=== PATIENT | female | born 1950 | race American Indian/Alaskan Native ===

== ENCOUNTER → 2017-04-24 | Outpatient (CLI) | payer MEDICARE, OTHER ==
[~2017-04-24] MED LIST: ACET325 PO; ALBU90OI INH; AMLO5 PO; ASCO500 PO; ASPI325 PO; ASPI325EC; ASPI81CH PO; ATEN100; ATEN100 PO; ATEN25 PO; ATOR10; ATOR80 PO; Adult Low Dose81 MG PO; Aspir-Low81 MG PO; BENADRYL25 MG PO; BENAML20/5; CALCA500CH; CHOL10002 PO; CIPDEXSU RIGHTEAR; CLOP75; CLOP75 PO; CYAN1000I IM; CYCL10 PO; Cleocin HCl150 MG PO; Colace100 MG PO; FLUT.05NI; FURO20 PO; FURO40 PO; GLYMET5; Glucophage1000 MG PO; HYDACE10B PO; HYDCHL12.5 PO; HYDR-86; HYDR1TAB94 PO; Humalog Mi100 UNIT/4 SC; Humalog100 UNIT/3 SQ; INSLI100I; INSULANI; INSULANPEN SC; Isosorbide Dini30 MG PO; Isosorbide Mono30 MG PO; Isosorbide Mono60 MG PO; LIDO5TO TOP; LIDO5TP TD; LIDO700A20 TOP; LISI20 PO; LISI5 PO; Lipitor80 MG PO; META800 PO; METF850; METO25ER PO; METO50ER PO; METR250 PO; NITR.4SL SL; NITRSPRAY SL; Nitrostat0.3 MG SL; Norco 10-325 T1 EACH; Norco 10-325 T1 EACH PO; OMEP20ER PO; OXYC5 PO; Omeprazole20 M1 PO; PANT20 PO; PANT40 PO; PREVAC; PREVPAC PO; PROM25 PO; Pepto-Bismol262 M1 PO; Percocet 5-3251 EACH PO; Prednisone20 MG PO; RANI150 PO; Roxicodone5 MG PO; SENN187 PO; SUCR1SU PO; Tetracycline H500 MG PO; Zofran Odt4 MG SL; Zofran Odt8 MG PO; [UNRECOGNIZED DRUG - OTHER]
== END | disposition home or self-care (01) ==
LOC: LAB SHORT 07:05 → PLD 07:05
DX: D11.0 Benign neoplasm of parotid gland (principal)
CPT/HCPCS: 88173

== ENCOUNTER 2017-07-31 06:17 | Day surgery (SDC) | payer MEDICARE, OTHER ==
[~2017-07-31] VITALS: Ht 167.6 cm; Wt 93.9 kg
[~2017-07-31 06:17] MED LIST changes: -AMLO5 PO; -Aspir-Low81 MG PO; -BENADRYL25 MG PO; -CYCL10 PO; -FURO20 PO; -Humalog Mi100 UNIT/4 SC; -Isosorbide Mono60 MG PO; -LIDO5TO TOP; -LIDO700A20 TOP; -Lipitor80 MG PO; -METO25ER PO; -Nitrostat0.3 MG SL; -Norco 10-325 T1 EACH; -Norco 10-325 T1 EACH PO; -PROM25 PO
[2017-07-31] MEDS ORDERED: METO25ER PO (07:04)
== END 2017-07-31 13:14 | disposition home or self-care (01) ==
LOC: ORSCSDS 06:17
PROVIDERS: Otolaryngology
PROC: 0CB80ZZ Excision of Right Parotid Gland, Open Approach (ICD-10-PCS; principal; 2017-07-31 07:30)
DX: D11.0 Benign neoplasm of parotid gland (principal); F17.210 Nicotine dependence, cigarettes, uncomplicated; E11.9 Type 2 diabetes mellitus without complications; E78.5 Hyperlipidemia, unspecified; I25.10 Atherosclerotic heart disease of native coronary artery without angina pectoris; F32.9 Major depressive disorder, single episode, unspecified; I25.2 Old myocardial infarction; I48.91 Unspecified atrial fibrillation; I10 Essential (primary) hypertension; Z79.01 Long term (current) use of anticoagulants; Z79.4 Long term (current) use of insulin; Z79.899 Other long term (current) drug therapy
CPT/HCPCS: 82947; 88307; J0171; J0330; J0360; J1100; J2250; J2405; J3010; J7120

== ENCOUNTER 2018-01-02 06:07 | Day surgery (SDC) | payer MEDICARE, OTHER ==
[~2018-01-02] VITALS: Ht 167.6 cm; Wt 98.0 kg
[~2018-01-02 06:07] MED LIST changes: +AMLO5 PO; +Aspir-Low81 MG PO; +BENADRYL25 MG PO; +CYCL10 PO; +FURO20 PO; +Humalog Mi100 UNIT/4 SC; +Isosorbide Mono60 MG PO; +LIDO5TO TOP; +LIDO700A20 TOP; +Lipitor80 MG PO; +METO25ER PO; +Nitrostat0.3 MG SL; +Norco 10-325 T1 EACH PO; +PROM25 PO
[2018-01-02] MEDS ORDERED: Norco 10-325 T1 EACH (06:44)
== END 2018-01-02 11:39 | disposition home or self-care (01) ==
LOC: ORSCSDS 06:07
PROVIDERS: Otolaryngology
PROC: 0CB90ZZ Excision of Left Parotid Gland, Open Approach (ICD-10-PCS; principal; 2018-01-02 07:30)
PROC: 00BM0ZZ Excision of Facial Nerve, Open Approach (ICD-10-PCS; principal; 2018-01-02 07:30)
DX: D11.0 Benign neoplasm of parotid gland (principal); E11.9 Type 2 diabetes mellitus without complications; I10 Essential (primary) hypertension; I25.10 Atherosclerotic heart disease of native coronary artery without angina pectoris; F17.210 Nicotine dependence, cigarettes, uncomplicated; Z79.82 Long term (current) use of aspirin; Z79.899 Other long term (current) drug therapy
CPT/HCPCS: 82947; 88307; J0171; J0330; J1100; J2250; J2370; J2405; J3010; J7120

== ENCOUNTER 2018-05-12 12:29 | Inpatient (IN) | payer MEDICARE, OTHER ==
[~2018-05-12] VITALS: Ht 167.6 cm; Wt 92.7 kg
[~2018-05-12 12:29] MED LIST changes: -AMLO5 PO; -Aspir-Low81 MG PO; -Lipitor80 MG PO
[2018-05-12 14:21] LABS: BASOPHILS ABSOLUTE AUTO 0.06 K/mm3 (0.00-0.23); BASOPHILS PERCENT AUTO 0 % (0-2); EOSINOPHILS ABSOLUTE AUTO 0.01 K/mm3 (0.00-0.68); EOSINOPHILS PERCENT AUTO 0 % (0-6); Hematocrit 33.8 % (33.0-51.0); Hemoglobin 10.8 g/dL (11.5-16.0); IMMATURE GRAN ABSOLUTE AUTO 0.26 K/mm3 (0.00-0.10); IMMATURE GRAN PERCENT AUTO 1 % (0-1); LYMPHOCYTES ABSOLUTE AUTO 0.88 K/mm3 (0.84-5.20); LYMPHOCYTES PERCENT AUTO 4 % (21-46); MONOCYTES ABSOLUTE AUTO 1.26 K/mm3 (0.16-1.47); MONOCYTES PERCENT AUTO 5 % (4-13); Mean Corpuscular HGB 28.3 pg (26.0-34.0); Mean Corpuscular Volume 89 fL (80-100); Mean Platelet Volume 9.3 fL (9.1-12.4); NEUTROPHILS ABSOLUTE AUTO 22.29 K/mm3 (1.96-9.15); NEUTROPHILS PERCENT AUTO 90 % (41-73); Platelet Count 423 K/mm3 (150-400); RDW Coefficient Variation 14.6 % (11.7-14.2); RDW Standard Deviation 47.6 fL (35.1-46.3); Red Blood Cell Count 3.81 M/mm3 (3.80-5.20); White Blood Cell Count 24.76 K/mm3 (4.00-11.30)
[2018-05-12 14:41] LABS: Influenza A Negative (NEGATIVE); Influenza B Negative (NEGATIVE)
[2018-05-12 14:42] LABS: Alanine Aminotransfer (ALT/SGP 23 U/L (12-78); Albumin, Blood 2.5 g/dL (3.4-5.0); Albumin/Globulin Ratio 0.4 (0.8-1.8); Alk Phos 116 U/L (50-136); Anion Gap 9 mmol/L (6-16); Aspartate Aminotrans (AST/SGOT 23 U/L (12-37); Bilirubin, Total 0.5 mg/dL (0.1-1.0); Blood Urea Nitrogen 27 mg/dL (8-24); Bun/Creatinine Ratio 15.1 (12.0-20.0); CO2, Blood 21 mmol/L (21-32); Calcium, Blood 9.4 mg/dL (8.5-10.1); Chloride, Blood 101 mmol/L (98-108); Creatinine, Blood 1.79 mg/dL (0.40-1.00); Globulin, Blood 5.8 g/dL (2.2-4.0); Glomerular Filtration Rate 30 (60-); Glucose, Blood 112 mg/dL (70-99); Sodium, Blood 131 mmol/L (136-145); Total Protein, Blood 8.3 g/dL (6.4-8.2); Troponin I <0.015 ng/mL (0.000-0.040)
[2018-05-12] MEDS ORDERED: **incomplete med rec (16:06)
[2018-05-12] MEDS ORDERED: AMLO5 PO (16:07)
[2018-05-12] MEDS ORDERED: Aspir-Low81 MG PO (16:09)
[2018-05-12] MEDS ORDERED: Lipitor80 MG PO (16:09)
[2018-05-12] MEDS ORDERED: FURO20 PO (16:10)
[2018-05-12] MEDS ORDERED: Norco 10-325 T1 EACH PO (16:11)
[2018-05-12] MEDS ORDERED: INSULANPEN SC (16:12)
[2018-05-12] MEDS ORDERED: Isosorbide Mono30 MG PO (16:14)
[2018-05-12] MEDS ORDERED: LISI20 PO (16:15)
[2018-05-12] MEDS ORDERED: METO50ER PO (16:16)
[2018-05-12] MEDS ORDERED: Omeprazole20 M1 PO (16:17)
[2018-05-12] MEDS ORDERED: CLOP75 PO (16:18)
[2018-05-12] MEDS ORDERED: TELM40 PO (16:19)
[2018-05-12] MEDS ORDERED: Humalog100 UNIT/1 SC (16:44)
[2018-05-12] MEDS ORDERED: ASCO500 PO (16:56)
[2018-05-12 18:35] LABS: Adenovirus Not Detected (NOT DETECT); Bordetella pertussis Not Detected (NOT DETECT); Chlamydophila pneumoniae Not Detected (NOT DETECT); Coronavirus 229E Not Detected (NOT DETECT); Coronavirus HKU1 Not Detected (NOT DETECT); Coronavirus NL63 Not Detected (NOT DETECT); Coronavirus OC43 Not Detected (NOT DETECT); Human Metapneumovirus Not Detected (NOT DETECT); Human Rhinovirus/Enterovirus Not Detected (NOT DETECT); Influenza A Not Detected (NOT DETECT); Influenza A/2009-H1 Not Detected (NOT DETECT); Influenza A/H1 Not Detected (NOT DETECT); Influenza A/H3 Not Detected (NOT DETECT); Influenza B Not Detected (NOT DETECT); Mycoplasma pneumoniae Not Detected (NOT DETECT); Parainfluenza Virus 1 Not Detected (NOT DETECT); Parainfluenza Virus 2 Not Detected (NOT DETECT); Parainfluenza Virus 3 Not Detected (NOT DETECT); Parainfluenza Virus 4 Not Detected (NOT DETECT); Respiratory Syncytial Virus Not Detected (NOT DETECT)
[2018-05-13 04:53] LABS: BASOPHILS ABSOLUTE AUTO 0.03 K/mm3 (0.00-0.23); BASOPHILS PERCENT AUTO 0 % (0-2); EOSINOPHILS PERCENT AUTO 0 % (0-6); Hematocrit 31.5 % (33.0-51.0); Hemoglobin 9.8 g/dL (11.5-16.0); IMMATURE GRAN ABSOLUTE AUTO 0.25 K/mm3 (0.00-0.10); IMMATURE GRAN PERCENT AUTO 1 % (0-1); LYMPHOCYTES ABSOLUTE AUTO 0.76 K/mm3 (0.84-5.20); LYMPHOCYTES PERCENT AUTO 3 % (21-46); MONOCYTES ABSOLUTE AUTO 0.13 K/mm3 (0.16-1.47); MONOCYTES PERCENT AUTO 1 % (4-13); Mean Corpuscular HGB 28.2 pg (26.0-34.0); Mean Corpuscular HGB Conc 31.1 g/dL (31.5-36.5); Mean Corpuscular Volume 91 fL (80-100); Mean Platelet Volume 9.4 fL (9.1-12.4); NEUTROPHILS PERCENT AUTO 95 % (41-73); Platelet Count 397 K/mm3 (150-400); RDW Coefficient Variation 14.9 % (11.7-14.2); RDW Standard Deviation 49.6 fL (35.1-46.3); Red Blood Cell Count 3.47 M/mm3 (3.80-5.20); White Blood Cell Count 22.37 K/mm3 (4.00-11.30)
[2018-05-13 05:12] LABS: Bun/Creatinine Ratio 16.6 (12.0-20.0); Calcium, Blood 8.8 mg/dL (8.5-10.1); Creatinine, Blood 1.51 mg/dL (0.40-1.00); Potassium, Blood 4.2 mmol/L (3.5-5.5)
--- NOTE | 2018-05-13 05:44 | NUR ---
*SHIFT SUMMARY* PATIENT ARRIVED TO ROOM VIA STRETCHER FROM ER. PATIENT STOOD AND TRANSFERED TO BED FROM STRETCHER. PT ON 2LNC. PRN BREATHING TX. PT IS ALERT AND ORIETNED. USES BSC FOR NOW, SOB WITH EXERTION. PT USES CALL LIGHT APPROPRIATELY. PT HAS PRODUCTIVE COUGH, MEDICATED FOR COUGH THROUGHOUT THE NIGHT WELL PAIN. PT HAS CHRONIC BACK PAIN AND DIABETIC NEUROPATHY. VITAL SIGNS STABLE. PT DID NOT GET MUCH SLEEP THROUGHOUT THE NIGHT. CALL LIGHT IN REACH, BED LOWERED AND LOCKED.
--- NOTE | 2018-05-13 17:22 | NUR ---
PT IS ALERT AND OREINTED AND COOPERATIVE WITH CARE. SHE CALLS APPROPRIATELY. SHE IS A ONE PERSON ASSIST TO THE BSC. SHE HAS SOME SOB WITH EXCERTION. RT HAS PROVIDED HER WITH BREATHING TREATMENTS TODAY. 2L O2 VIA NC. NO COMPLAINTS OF PAIN. HER SPOUSE VISITED HER TODAY. SHE HAS ASKED FOR PEPSI THREE TIMES TODAY, WHEN ENCOURAGED TO DRINK DIET PEPSI, THE PATIENT REFUSES AND DEMANDS REGULAR PEPSI. NO ACUTE CHANGES, WILL CONTINUE TO MONITOR.
--- NOTE | 2018-05-14 04:49 | NUR ---
SHIFT SUMMARY PT A/O. AND GRANDDAUGHTER AT BEDSIDE FOR START OF THE SHIFT BEFORE RETURNING HOME. PT UP THROUGH MUCH OF THE NIGHT. HAVING DIFFICULTY SLEEPING IN NEW ENVIRONMENT AND PT'S FREQUENT COUGH ADDING TO DIFFICULTY. TESSLON PEARLS GIVEN BUT NOT VERY EFFECTIVE. PT HAS VERY HARSH NAGGING COUGH THAT IS NEARLY COMPLETLY NONPRODUCTIVE. DID COUGH SMALL AMOUNT OF YELLOW SPUTUM UP X 1 THAT HAD A COUPLE OF VERY SMALL SPOTS OF BLOOD IN IT. PT REMAINED ON 2 L O2 NC. LUNGS DIMINISHED AND TIGHT WITH SOME EXPIRATORY WHEEZING. PT REPORTED CHRONIC MID BACK PAIN. MEDICATED X 1 W/ 2 TABS 5/325 NORCO. BLOOD SUGARS ELEVATED TONIGHT AT 258. PT DRINKING SODA AND ATE FAST FOOD THAT BROUGHT IN. COVERED W/ LONG AND SHORT ACTING INSULIN. PT RESTING IN BED AT THIS TIME. VSS. WILL CONTINUE TO MONITOR AND REPORT TO DAY RN.
[2018-05-14 05:57] LABS: Bun/Creatinine Ratio 20.7 (12.0-20.0); Calcium, Blood 9.1 mg/dL (8.5-10.1); Creatinine, Blood 1.4 mg/dL (0.40-1.00); Potassium, Blood 4.2 mmol/L (3.5-5.5)
[2018-05-14 06:20] LABS: BASOPHILS ABSOLUTE AUTO 0.05 K/mm3 (0.00-0.23); BASOPHILS PERCENT AUTO 0 % (0-2); EOSINOPHILS PERCENT AUTO 0 % (0-6); Hematocrit 30.5 % (33.0-51.0); Hemoglobin 9.5 g/dL (11.5-16.0); IMMATURE GRAN ABSOLUTE AUTO 0.48 K/mm3 (0.00-0.10); IMMATURE GRAN PERCENT AUTO 2 % (0-1); LYMPHOCYTES ABSOLUTE AUTO 1.34 K/mm3 (0.84-5.20); LYMPHOCYTES PERCENT AUTO 5 % (21-46); MONOCYTES PERCENT AUTO 5 % (4-13); Mean Corpuscular HGB 27.9 pg (26.0-34.0); Mean Corpuscular HGB Conc 31.1 g/dL (31.5-36.5); Mean Corpuscular Volume 90 fL (80-100); Mean Platelet Volume 9.7 fL (9.1-12.4); NEUTROPHILS ABSOLUTE AUTO 24.65 K/mm3 (1.96-9.15); NEUTROPHILS PERCENT AUTO 89 % (41-73); NRBC ABSOLUTE 0.02 K/mm3 (0.00-0.02); NRBC Auto 0.1 /100 WBC (0.0-0.2); Platelet Count 437 K/mm3 (150-400); RDW Coefficient Variation 14.9 % (11.7-14.2); RDW Standard Deviation 49.1 fL (35.1-46.3); White Blood Cell Count 27.82 K/mm3 (4.00-11.30)
--- NOTE | 2018-05-14 10:37 | NUR ---
PATIENT WAS OFFERED A SHOWER AND DECLINED SHE WANTED TO WAIT FOR HER TO SHOW UP TO HELP WITH HER HAIR AND HAS NOW DECLINED SHE IS BEING DISCHARGED AND WILL TAKE ONE AT HOME.
[2018-05-14] MEDS ORDERED: AZIT250 PO (11:12)
[2018-05-14] MEDS ORDERED: GUAI600T33 PO (11:13)
[2018-05-14] MEDS ORDERED: PRED10 PO (11:14)
--- NOTE | 2018-05-14 11:56 | NUR ---
PT DISCHARGED HOME. PT TRANSPORTED TO CAR BY WHEELCHAIR. PT'S SPOUSE HERE TO DRIVE PT HOME. IV DC'D PRIOR TO DISCHARGE. DISCHARGE INSTRUCTION AND NEW MEDICATIONS EXPLAINED TO PT BY RN.
== END 2018-05-14 11:40 | disposition home or self-care (01) | DRG 190 ==
LOC: ER 12:29 → ERHOLD 16:11 → MEDS 21:10 → ENPENDDIS 05-14 10:54 → MEDS 05-14 11:40
PROVIDERS: Emergency Medicine; Physician Assistant; ADMIT Hospitalist
DX: J44.1 Chronic obstructive pulmonary disease with (acute) exacerbation (principal); J96.01 Acute respiratory failure with hypoxia; R65.11 Systemic inflammatory response syndrome (SIRS) of non-infectious origin with acute organ dysfunction; E87.1 Hypo-osmolality and hyponatremia; Z90.5 Acquired absence of kidney; Z85.528 Personal history of other malignant neoplasm of kidney; Z79.82 Long term (current) use of aspirin; Z79.4 Long term (current) use of insulin; E11.9 Type 2 diabetes mellitus without complications; Z87.891 Personal history of nicotine dependence; I25.10 Atherosclerotic heart disease of native coronary artery without angina pectoris; K21.9 Gastro-esophageal reflux disease without esophagitis
CPT/HCPCS: 36415; 71046; 80048; 80053; 82947; 83605; 83880; 84145; 84484; 85025; 87486; 87581; 87633; 87798; 87804; 93005; 93010; 94640; 94760; 96361; 96365; 96367; 96375; 99285-25; J0456; J0696; J1650; J2920; J3480; J7030; J7050

== ENCOUNTER 2019-01-15 00:53 | Inpatient (IN) | payer OTHER ==
[~2019-01-15] VITALS: Ht 167.6 cm; Wt 90.0 kg
[~2019-01-15 00:53] MED LIST changes: +**incomplete med rec; +AMLO5 PO; +AZIT250 PO; +Aspir-Low81 MG PO; +GUAI600T33 PO; +Humalog100 UNIT/1 SC; +Lipitor80 MG PO; +Norco 7.5-3251 EACH PO; +PRED10 PO; +TELM40 PO
[2019-01-15 01:05] LABS: PO2 Arterial 63.2 mmHg (80-100); pH Blood Arterial 7.27 (7.35-7.45)
[2019-01-15 01:12] LABS: BASOPHILS ABSOLUTE AUTO 0.03 K/mm3 (0.00-0.23); BASOPHILS PERCENT AUTO 0 % (0-2); EOSINOPHILS PERCENT AUTO 0 % (0-6); Hematocrit 33.2 % (33.0-51.0); Hemoglobin 10.3 g/dL (11.5-16.0); IMMATURE GRAN ABSOLUTE AUTO 0.12 K/mm3 (0.00-0.10); IMMATURE GRAN PERCENT AUTO 1 % (0-1); LYMPHOCYTES ABSOLUTE AUTO 0.94 K/mm3 (0.84-5.20); LYMPHOCYTES PERCENT AUTO 6 % (21-46); MONOCYTES ABSOLUTE AUTO 1.26 K/mm3 (0.16-1.47); MONOCYTES PERCENT AUTO 7 % (4-13); Mean Corpuscular HGB 28.7 pg (26.0-34.0); Mean Corpuscular Volume 93 fL (80-100); Mean Platelet Volume 9.9 fL (9.1-12.4); NEUTROPHILS PERCENT AUTO 86 % (41-73); NRBC ABSOLUTE 0.02 K/mm3 (0.00-0.02); NRBC Auto 0.1 /100 WBC (0.0-0.2); Platelet Count 289 K/mm3 (150-400); RDW Coefficient Variation 14.8 % (11.7-14.2); RDW Standard Deviation 50.7 fL (35.1-46.3); Red Blood Cell Count 3.59 M/mm3 (3.80-5.20); White Blood Cell Count 16.95 K/mm3 (4.00-11.30)
[2019-01-15 01:15] LABS: Chloride (POC) 98 mmol/L (98-108); Glucose (ISTAT POC) 259 mg/dL (70-99); Hemoglobin (POC) 10.9 g/dL (12.0-16.0); Potassium (POC) 3.9 mmol/L (3.5-5.5); Sodium (POC) 131 mmol/L (135-148); Total CO2 (POC) 23 mmol/L (21-32)
[2019-01-15 01:35] LABS: Albumin, Blood 2.7 g/dL (3.4-5.0); Albumin/Globulin Ratio 0.5 (0.8-1.8); Bilirubin, Total 0.4 mg/dL (0.1-1.0); Bun/Creatinine Ratio 19.2 (12.0-20.0); Calcium, Blood 9.1 mg/dL (8.5-10.1); Creatinine, Blood 1.82 mg/dL (0.40-1.00); Globulin, Blood 5.5 g/dL (2.2-4.0); Potassium, Blood 3.9 mmol/L (3.5-5.5); Total Protein, Blood 8.2 g/dL (6.4-8.2)
[2019-01-15 01:38] LABS: Troponin I 0.724 ng/mL (0.000-0.040)
[2019-01-15 02:16] LABS: Source, Urine Catheter
[2019-01-15 02:18] LABS: Bilirubin, Urine Neg (Neg); Blood, Urine 4+ (Neg); Glucose Qualitative, Urine Neg (Neg); Ketones, Urine 1+ (Neg); Leukocyte Esterase, Urine Neg (Neg); Nitrite, Urine Neg (Neg); Protein, Urine 4+ (Neg); Specific Gravity, Urine 1.025 (1.003-1.022); Urobilinogen, Urine NORM (Normal)
[2019-01-15 02:35] LABS: Appearance, Urine Cloudy (Clear); Color, Urine Yellow (P-Yellow)
[2019-01-15 02:36] LABS: Amorphous Heavy (0-Heavy); Bacteria Few /hpf; Squamous Epithelial Cells Few /hpf (Few); White Blood Cells, Urine Rare /hpf (0-5)
[2019-01-15 05:11] LABS: BASOPHILS ABSOLUTE AUTO 0.05 K/mm3 (0.00-0.23); BASOPHILS PERCENT AUTO 0 % (0-2); EOSINOPHILS PERCENT AUTO 0 % (0-6); Hematocrit 30.8 % (33.0-51.0); Hemoglobin 9.6 g/dL (11.5-16.0); IMMATURE GRAN ABSOLUTE AUTO 0.19 K/mm3 (0.00-0.10); IMMATURE GRAN PERCENT AUTO 1 % (0-1); LYMPHOCYTES PERCENT AUTO 2 % (21-46); MONOCYTES ABSOLUTE AUTO 0.48 K/mm3 (0.16-1.47); MONOCYTES PERCENT AUTO 2 % (4-13); Mean Corpuscular HGB 28.3 pg (26.0-34.0); Mean Corpuscular HGB Conc 31.2 g/dL (31.5-36.5); Mean Corpuscular Volume 91 fL (80-100); Mean Platelet Volume 9.6 fL (9.1-12.4); NEUTROPHILS ABSOLUTE AUTO 22.07 K/mm3 (1.96-9.15); NEUTROPHILS PERCENT AUTO 95 % (41-73); NRBC ABSOLUTE 0.02 K/mm3 (0.00-0.02); NRBC Auto 0.1 /100 WBC (0.0-0.2); Platelet Count 291 K/mm3 (150-400); RDW Coefficient Variation 14.9 % (11.7-14.2); RDW Standard Deviation 50.1 fL (35.1-46.3); Red Blood Cell Count 3.39 M/mm3 (3.80-5.20); White Blood Cell Count 23.19 K/mm3 (4.00-11.30)
[2019-01-15 05:26] LABS: Bun/Creatinine Ratio 18.5 (12.0-20.0); Calcium, Blood 8.8 mg/dL (8.5-10.1); Creatinine, Blood 1.73 mg/dL (0.40-1.00); Potassium, Blood 3.9 mmol/L (3.5-5.5)
--- NOTE | 2019-01-15 06:14 | NUR ---
ADMIT/SHIFT SUMMARY: PT C/O SOB, DYSPNEA. PT TRANSPORTED FROM ED WITH DX OF RESPIRATORY FAILURE, HYPOXIA, ALTERED MENTAL STATUS, AND ON SEPSIS PROTOCOL. PT SOMNOLENT ON ARRIVAL, NOT ALERT BUT AROUSABLE. FEBRILE WITH T 100.0. LUNG SOUNDS COURSE ON BIPAP 02/06, FIO2 40%, SPO2 >90%. PT IS ST WITH HR IN THE 130S. SBP IN THE 150S. TEMP GARCIA IN PLACE DRAINING CLEAR YELLOW FLUID. 20G TO LFA AND L WRIST. NS RUNNING AT 200MLS/HR. GRANDDAUGHTER AT BEDSIDE.
--- NOTE | 2019-01-15 07:26 | NUR ---
ASSUMED CARE: PT RESTING IN BED AT THIS TIME. BIPAP IN PLACE, SETTINGS /6, 40% FIO2. TACH AT THIS TIME. FAMILY AT BEDSIDE.
--- NOTE | 2019-01-15 08:00 | NUR ---
DR BARRAZA HERE TO SEE PT. AWARE THAT PT WAS AGITATED AND PULLING AT MASK, IN BILAT WRIST RESTRAINTS. ORDERED ONE TIME DOSE OF FENTANYL. DISCUSSED WITH PT'S FAMILY PLAN FOR BREAK FROM BIPAP FOR MEDS. DR AWARE OF ELEVATED TROPONIN. DR ORDERED REPEAT FOR LATER THIS SHIFT.
--- NOTE | 2019-01-15 09:21 | NUR ---
ATTEMPTED TO GIVE PT A BREAK FROM BIPAP FOR ORAL CARE AND MEDICATIONS. MOANED DURING ORAL CARE BUT DID NOT ROUSE ENOUGH TO TAKE MEDICATIONS. 8L NC, DESAT TO 88-91 AFTER A FEW MINUTES WITH DYSPNEA NOTED. BIPAP REPLACED AT 12/6, 40% FIO2. RT AWARE
--- NOTE | 2019-01-15 10:01 | NUR ---
SPOKE WITH DR JENSEN REGARDING PT'S STATUS AND MEDS THAT WERE UNABLE TO BE GIVEN DUE TO LETHARGY
--- NOTE | 2019-01-15 11:30 | NUR ---
PRECEDEX GTT STARTED FOR AGITATION. RATE 0.7MCG/KG/MIN. AWAITING PT TO CALM ENOUGHT FOR NG TUBE PLACEMENT FOR MEDS PER DR GONSALVES
--- NOTE | 2019-01-15 13:30 | NUR ---
DOBHOFF PLACED DUE TO DIFFICULTY WITH NG. AWAITING VERIFICATION OF PLACEMENT BY RADIOLOGY
--- NOTE | 2019-01-15 14:00 | NUR ---
DOBHOFF PLACED BY PCA WITH SUPERVISION. NEW IV START WELL. PT TOLERATED WELL. AWAITING PLACEMENT OF DOBHOFF TO START MEDICATIONS
--- NOTE | 2019-01-15 15:20 | NUR ---
DISCUSSED WITH PHARMACY CHANGING MEDS FOR TUBE ADMINISTRATION. CLEARED WITH DR GONSALVES. LAB CALLED FOR CRITICAL TROPONIN. DR GONSALVES AWARE AND ORDERS FOR EKG, CARDIOLOGY CONSULT AND ECHO. FAMILY AWARE
[2019-01-15 15:43] LABS: Prothrombin Time Results 10.6 Sec (9.7-11.5)
--- NOTE | 2019-01-15 16:13 | NUR ---
Echocardiogram completed.
[2019-01-15] MEDS ORDERED: COMBIVENT RESPIM4 GM INH (18:04)
[2019-01-15] MEDS ORDERED: FURO20 PO (18:07)
[2019-01-15] MEDS ORDERED: BASAGLAR K100 UNIT/1 SC (18:07)
[2019-01-15] MEDS ORDERED: ASPI81CH PO (18:09)
--- NOTE | 2019-01-15 19:20 | NUR ---
SHIFT SUMMARY: PT SWITCHED TO AIRVO, SETTINGS 60L, 50% FIO2. CAME BY TO SEE HER AND MED REC AND HISTORY UPDATED. PT REMAINS WITH DOBHOFF IN PLACE AND BILATERAL WRIST RESTRAINTS. PRECEDEX TITRATED TO 0.4 MCG/KG.MIN. HEPARIN GTT RUNNING PER PHARMACY. GARCIA CATH IN PLACE. NYSTATIN ORDERED FOR RASH TO LEFT THIGH. NO FURTHER NEEDS OR CONCERNS AT THIS TIME.
--- NOTE | 2019-01-15 20:00 | NUR ---
INITIAL ASSESSMENT: PT SEDATED AND RESTING COMFORTABLY. ON PRECEDEX AT 0.4. REPORTED THAT PT WAS AGITATED AND PULLING AT LINES DURING DAYSHIFT. PT IS AFEBRILE. LUNG SOUNDS COURSE AND DIM AT BASES. ON AIRVO AT 60L AND FIO2 AT 50%. SPO2 >90%. PT IN SR, SBP 110S HR IN THE 70S. TEMP GARCIA IN PLACE DRAINING DARK YELLOW URINE. 20G IV IN LFA AND 20G IN RIGHT WRIST. HEPARIN, PRECEDEX INFUSING. BT X 4. DOBHOFF IN PLACE FOR MEDS ONLY. NO ACUTE CHANGES AT THIS TIME
[2019-01-16 04:12] LABS: BASOPHILS ABSOLUTE AUTO 0.05 K/mm3 (0.00-0.23); BASOPHILS PERCENT AUTO 0 % (0-2); EOSINOPHILS PERCENT AUTO 0 % (0-6); Hematocrit 29.6 % (33.0-51.0); Hemoglobin 9.4 g/dL (11.5-16.0); IMMATURE GRAN ABSOLUTE AUTO 0.31 K/mm3 (0.00-0.10); IMMATURE GRAN PERCENT AUTO 1 % (0-1); LYMPHOCYTES ABSOLUTE AUTO 0.98 K/mm3 (0.84-5.20); LYMPHOCYTES PERCENT AUTO 4 % (21-46); MONOCYTES ABSOLUTE AUTO 1.02 K/mm3 (0.16-1.47); MONOCYTES PERCENT AUTO 4 % (4-13); Mean Corpuscular HGB 28.3 pg (26.0-34.0); Mean Corpuscular HGB Conc 31.8 g/dL (31.5-36.5); Mean Corpuscular Volume 89 fL (80-100); Mean Platelet Volume 9.8 fL (9.1-12.4); NEUTROPHILS PERCENT AUTO 91 % (41-73); NRBC ABSOLUTE 0.04 K/mm3 (0.00-0.02); NRBC Auto 0.2 /100 WBC (0.0-0.2); Platelet Count 294 K/mm3 (150-400); RDW Coefficient Variation 14.7 % (11.7-14.2); Red Blood Cell Count 3.32 M/mm3 (3.80-5.20); White Blood Cell Count 25.36 K/mm3 (4.00-11.30)
[2019-01-16 04:33] LABS: Bun/Creatinine Ratio 26.2 (12.0-20.0); Calcium, Blood 8.9 mg/dL (8.5-10.1); Creatinine, Blood 1.41 mg/dL (0.40-1.00); Potassium, Blood 3.8 mmol/L (3.5-5.5)
--- NOTE | 2019-01-16 05:29 | NUR ---
SHIFT ASSESSMENT: PT MORE ALERT AT END OF SHIFT. ABLE TO EXPRESS NEEDS, SPEECH MORE CLEAR. AFEBRILE THROUGHOUT SHIFT. LUNG SOUNDS WHEEZY. HAS HAD EPISODES OF DESATTING THROUGHOUT SHIFT. ON AIRVO AT 60L, FIO2 AT 45%. CURRENTLY SPO2 >90%. IN SR SBP IN THE 110S, HR IN THE 70S. DOBHOFF IN PLACE FOR MEDS ONLY. TEMP GARCIA IN PLACE DRAINING DARKISH YELLOW URINE. 20G IN LFA AND LW. HEPARIN RUNNING AT 15, PRECEDEX CURRENTLY AT 0.4. NO ACUTE CHANGES AT HIS TIME.
--- NOTE | 2019-01-16 07:45 | NUR ---
ASSUMED CARE RECEIVED REPORT FROM SUZI BURDICK. PT IS ALERT AND ORIENTED TO SELF AND SURROUNDINGS, BUT NOT THE RIGHT LOCATION OR REALLY WHATS GOING ON. SHE IS AIRVO 60 LPM, WITH FIO2 45%. SHE IS SAT'ING LOW 90'S. CURRENT GTTPS: PRECEDE 0.4MCG/KG/HR, AND HEPARIN 15 UNITS/KG/HR AND NS TKO. CALL LIGHT IS WITHIN REACH, AND SHE IS MORE ORIENTED TO HER ROOM NOW. BED IS LOW AND LOCKED.
--- NOTE | 2019-01-16 11:18 | NUR ---
UPDATE DR. WATTS IN ROOM ASSESSING PATIENT, AND EXPLAINED TO ME THERES NOT MUCH HE CAN DO FOR HER AT THIS POINT UNTIL HER PULMONARY DISTRESS IS TAKEN CARE OF. PT HAS BEEN HIGH ANXIETY AND TACHYPNIC CAUSING DESATURATION OF OXYGEN, AND WAS SATING IN THE 80'S. SHE WAS PLACED ON THE BIPAP 12/6, [id number]%. HER RR IS CURRENTLY 21 AND HER SATS ARE 93%. SHE IS RESTING NOW.
--- NOTE | 2019-01-16 18:41 | NUR ---
SHIFT SUMMARY PT IS ON THE BIPAP, 02/05, FIO2: 40%. MAINTAINING SAT'S LOW 90'S. CURRENT GTTPS: HEPARIN 17 UNITS/KG/HOUR, PRECEDEX 0.5MCG/KG/HR, AND NS TKO. PT WAS ALERT AND ORIENTED TO SELF, SURROUNDINGS AND FAMILY THIS MORNING, BUT NOT THE LOCATION OF THIS HOSPITAL OR EXACTLY WHAT WAS GOING ON. SHE HAS BEEN ADEQUETLY SEDATED THE LAST FEW HOURS. SHE HAS VITAL HIGH PROTEIN AT 25ML/HR, WITH Q4H 30CC FLUSHES VIA DOBHOF. SHE MINIMAL BUT ADEQUATE URINE OUTPUT OF 550ML, FROM HER GARCIA. 12L EKG SHOWED NEW T-WAVE INVERSION. TROPONIN IS TRENDING DOWNWARD NOW. NO COMPLAINTS OF PAIN, OR NAUSEA. KISHOR WANTS HER TO HAVE BREAKS FROM THE BIPAP IN THE MORNING, AND IF SHE CAN NO LONGER TOLERATE BIPAP SHE CAN GO BACK ON THE AIRVO AT 60LPM, 40% FIO2. BED IS LOW AND LOCKED. AND GREAT-GRANDSON VISTED TODAY. CALL LIGTH WITHIN REACH. AND PT IS ORIENTED TO USE IT AND IS ORIENTED MORE TO THE ROOM.
--- NOTE | 2019-01-16 19:31 | NUR ---
START OF SHIFT: REPORT FROM KARY BRUDICK. PT AROUSABLE, DENIES PAIN. VSS. PT TOLERATING BIPAP. BIPAP SETTINGS 10/5, RATE 4, FiO2 40%, SATS 98%. LS SLIGHTLY COARSE BRIGIDO, DIMINSHED T/O BILATERALLY. PT TAKING SHALLOW BREATHS WHILE TRYING TO TALK. PT ON PRECEDEX WAS REDUCED FROM 0.5 mcg/kg/hr TO 0.2 mcg/kg/hr. HEPARING gtt 17u/kg/hr (24.5 mL), NS @ TKO. PT HR 60'S-70'S NSR. PT WITH DOBHOFF FEED TUBE, TF c/ VITAL HP RUNNING AT 25mL/hr.
--- NOTE | 2019-01-16 19:46 | NUR ---
CORE TEMP: 96.6, TEMPORAL 96.1. BEAR DARSHAN PLACED.
--- NOTE | 2019-01-16 21:38 | NUR ---
PT AWAKENS EASILY WHEN ON LOWER DOSE PRECEDEX. PT ORIENTED TO HOSPITAL, MONTH, PRESIDENT, AND FOLLOWS COMMANDS. PT MOSTLY CALM AND COOPERATIVE BUT BECAME AGITATED WHEN NOT ABLE TO DRINK ICE WATER SHE WANTS. PT STATED, "MY DOCTOR WOULDN'T HAVE DONE THIS" (REFERRING TO FEED TUBE). PT STATED, "I DON'T WANT ANY OF THIS. IF I CAN'T EAT AND DRINK LIKE NORMAL, I DON'T WANT THIS". THIS RN EXPLAINED POLST AND ADVANCE DIRECTIVES TO PATIENT. PT DIDN'T SEEM NOR VERBALIZED UNDERSTANDING. PT STATED WANTED TO WATCH TV AND WAS SHOWN, AGAIN, HOW TO USE CALL LIGHT. DURING THIS TIME, PT REACHED AND FELT TUBES AND SOFTLY PULLED AT AIRVO TUBE. PT EASILY REDIRECTED BUT BEGAN TO INCREASE IN ANXIETY. PRECEDEX INCREASED BACK TO 0.4 mcg/kg/hr. PT CURRENTLY RESTING C/ EYES CLOSED. CALL LIGHT IN HAND.
--- NOTE | 2019-01-16 23:46 | NUR ---
UPDATE: PT AWAKENS EASILY TO VOICE. VSS. PRECEEX REMAINS AT 0.4mcg/kg/hr. PT WITH OCCASIONAL, NOW, PRODUCTIVE COUGH C/ RAND SPUTUM OUT. TF RATE INCREASED TO 35cc/hr. PT C/ CALL LIGHT IN HAND.
--- NOTE | 2019-01-17 00:14 | NUR ---
PHARMACY NOTIFIED RE: aPTT VALUE. ORDER TO KEEP HEPARIN AT CURRENT RATE OF 17u/kg/hr.
--- NOTE | 2019-01-17 00:34 | NUR ---
BEAR DARSHAN OFF AT APPRX 2230 WHEN PT STATED FELT TOO WARM. TEMP CURRENTLY 98.1-98.2.
--- NOTE | 2019-01-17 04:38 | NUR ---
PULLED OUT DOBHOFF: PT FOUND WITH AIRVO TUBING OFF AND DOBHOFF PULLED OUT APPRX 15cm. PT STATED WANTS THE TUBE OUT. STRIPPER LATEX TO ROOM. XRAY NOTIFIED. PT FULLY AWAKE ON PRECEDEX DEMANDING TUBE (DOBHOFF) OUT. NOTED WAS THAT THE REASON THE DOBHOFF WAS PLACED WAS BECAUSE PT WAS LETHARGIC AND UNABLE TO SWALLOW HER MEDICATIONS. PT IS NOW A+O X4 AND IS WANTING SIPS OF ICE WATER TO EAT REAL FOOD. WILL PERFOM A SWALLOW EVAIL THEN NOTIFY .
--- NOTE | 2019-01-17 05:03 | NUR ---
BEDSIDE SCREENING FOR SWALLOW EVAL: PT PASSED. WILL NOTIFY MD FOR FURTHER ORDERS.
[2019-01-17 05:40] LABS: Base Excess Venous 0.7 mmol/L; Bicarbonate Venous 24.2 mmol/L (24.0-30.0); PCO2 Venous 44.3 mmHg (38-42); PO2 Venous 33.5 mmHg (38-42); pH Blood Venous 7.38 (7.34-7.37)
[2019-01-17 05:41] LABS: BASOPHILS ABSOLUTE AUTO 0.03 K/mm3 (0.00-0.23); BASOPHILS PERCENT AUTO 0 % (0-2); EOSINOPHILS PERCENT AUTO 0 % (0-6); Hematocrit 31.1 % (33.0-51.0); Hemoglobin 9.8 g/dL (11.5-16.0); IMMATURE GRAN ABSOLUTE AUTO 0.23 K/mm3 (0.00-0.10); IMMATURE GRAN PERCENT AUTO 1 % (0-1); LYMPHOCYTES ABSOLUTE AUTO 0.87 K/mm3 (0.84-5.20); LYMPHOCYTES PERCENT AUTO 4 % (21-46); MONOCYTES ABSOLUTE AUTO 0.73 K/mm3 (0.16-1.47); MONOCYTES PERCENT AUTO 3 % (4-13); Mean Corpuscular HGB 28.6 pg (26.0-34.0); Mean Corpuscular HGB Conc 31.5 g/dL (31.5-36.5); Mean Corpuscular Volume 91 fL (80-100); Mean Platelet Volume 9.9 fL (9.1-12.4); NEUTROPHILS ABSOLUTE AUTO 19.95 K/mm3 (1.96-9.15); NEUTROPHILS PERCENT AUTO 92 % (41-73); Platelet Count 343 K/mm3 (150-400); RDW Coefficient Variation 15.2 % (11.7-14.2); RDW Standard Deviation 50.4 fL (35.1-46.3); Red Blood Cell Count 3.43 M/mm3 (3.80-5.20); White Blood Cell Count 21.81 K/mm3 (4.00-11.30)
[2019-01-17 06:00] LABS: Alanine Aminotransfer (ALT/SGP 42 U/L (12-78); Albumin, Blood 2.1 g/dL (3.4-5.0); Albumin/Globulin Ratio 0.4 (0.8-1.8); Alk Phos 86 U/L (50-136); Anion Gap 7 mmol/L (6-16); Aspartate Aminotrans (AST/SGOT 41 U/L (12-37); Bilirubin, Total 0.2 mg/dL (0.1-1.0); Blood Urea Nitrogen 41 mg/dL (8-24); Bun/Creatinine Ratio 30.6 (12.0-20.0); CO2, Blood 26 mmol/L (21-32); Calcium, Blood 8.9 mg/dL (8.5-10.1); Chloride, Blood 108 mmol/L (98-108); Creatinine, Blood 1.34 mg/dL (0.40-1.00); Globulin, Blood 4.8 g/dL (2.2-4.0); Glomerular Filtration Rate 42 (60-); Glucose, Blood 223 mg/dL (70-99); Magnesium, Blood 2.2 mg/dL (1.6-2.4); Phosphorus, Blood 3.3 mg/dL (2.5-4.9); Potassium, Blood 3.8 mmol/L (3.5-5.5); Sodium, Blood 141 mmol/L (136-145); Total Protein, Blood 6.9 g/dL (6.4-8.2); Vancomycin, Random 17.1 ug/mL
--- NOTE | 2019-01-17 11:03 | NUR ---
ASSUMED CARE NOTE: ASSUMED CARE PT AT 0700, RECEVIED REPORT FROM NISA BURDICK. PT IS ALERT AND ORIENTED TO SELF/FAMILY/ AND IS ABLE TO FOLLOW DIRECTIONS. PT IS ON 3L OF 02 VIA NC WITH SPO2 ABOVE 90%. PT IS IN NSR WITH HR IN THE 60'S. PT WAS ABLE TO EAT BREAKFEST AND TAKE MEDS WITHOUT S/S OF ASPIRATION. PT HAS BEEN HAVING MULTIPLE LOOSE BM'S, THEREFORE TO PROTECT SKIN, A RECTAL TUBE WILL BE PLACED. GARCIA PATENT AND DRAINING WELL. WILL CONTINUE TO MONITOR PT T/O SHIFT. CALL LIGHT WITHIN REACH, BED AT LOWEST LEVEL.
--- NOTE | 2019-01-17 16:13 | NUR ---
Pt arrived from ICU in bed, transferred to bed PCU 14. The pt is alert, oriented to person, place, date, following directions, and ongoing events. States she doesn't remember getting sick nor coming to the hospital by ambulance. monitor technician in place, and rhythm is sinus at 94 bpm at this time. Vital signs are stable. She denies pain, except for chronic neuropathy which she states that she has all the time in her whole body. She is presently talking with her Vito on the phone. Appears slightly anxious, and states she would just really like to go home. States that she is not really upset,but that she inherited 3 great grandchildren, and that they live with her and her .
--- NOTE | 2019-01-17 16:15 | NUR ---
TRANSFER NOTE: TRANSFERD PT TO [facility] VIA BED. GAVE REPORT TO AMINA BURDICK. RECTAL TUBE WAS NOT PLACED DUE TO NO FURTHER LOOSE BMS. PT CONTINUES TO BE ON 3L OF 02 VIA NC, WITH SP02 ABOVE 90%. PT IN SR WITH HR @ 60's BPM. GARCIA DRAINING CLEAR YELLOW URINE. PT WAS ALERT AND ORIENTED TO SELF, FAMILY AND WAS ABLE TO FOLLOW DIRECTIONS. PT'S BELONGINGS WERE TAKEN TO ROOM WITH HER.
--- NOTE | 2019-01-17 18:49 | NUR ---
The pt is sitting up in bed, watching TV after eating dinner. She has no complaints at this time. Respirations appear non labored, but she does have an occasional moist nonproductive cough. No bowel movements since arrival from ICU. Waiting to rule out c-diff per orders.Trotter catheter in place, draining clear light yellow urine.
[2019-01-18 05:26] LABS: BASOPHILS ABSOLUTE AUTO 0.03 K/mm3 (0.00-0.23); BASOPHILS PERCENT AUTO 0 % (0-2); EOSINOPHILS PERCENT AUTO 0 % (0-6); Hemoglobin 9.6 g/dL (11.5-16.0); IMMATURE GRAN ABSOLUTE AUTO 0.65 K/mm3 (0.00-0.10); IMMATURE GRAN PERCENT AUTO 4 % (0-1); LYMPHOCYTES ABSOLUTE AUTO 1.08 K/mm3 (0.84-5.20); LYMPHOCYTES PERCENT AUTO 6 % (21-46); MONOCYTES PERCENT AUTO 3 % (4-13); Mean Corpuscular HGB 28.5 pg (26.0-34.0); Mean Corpuscular Volume 92 fL (80-100); Mean Platelet Volume 9.9 fL (9.1-12.4); NEUTROPHILS ABSOLUTE AUTO 15.42 K/mm3 (1.96-9.15); NEUTROPHILS PERCENT AUTO 87 % (41-73); NRBC ABSOLUTE 0.05 K/mm3 (0.00-0.02); NRBC Auto 0.3 /100 WBC (0.0-0.2); Platelet Count 365 K/mm3 (150-400); RDW Coefficient Variation 15.3 % (11.7-14.2); Red Blood Cell Count 3.37 M/mm3 (3.80-5.20); White Blood Cell Count 17.78 K/mm3 (4.00-11.30)
[2019-01-18 05:45] LABS: Bun/Creatinine Ratio 26.2 (12.0-20.0); Calcium, Blood 8.9 mg/dL (8.5-10.1); Creatinine, Blood 1.26 mg/dL (0.40-1.00); Magnesium, Blood 2.1 mg/dL (1.6-2.4); Phosphorus, Blood 2.9 mg/dL (2.5-4.9); Potassium, Blood 3.5 mmol/L (3.5-5.5)
--- NOTE | 2019-01-18 06:31 | NUR ---
END OF SHIFT SUMMARY PT AXO, BUT HAS SHOWN SOME CONFUSION. HAS REMAINED ON 2 - 3 LNC. NO BIPAP USEW THIS SHIFT. GARCIA REMAINS IN PLACE. PT HAD INCONTINENT BM X1 THIS SHIFT, SAMPLE SENT OFF TO RULE OUT C DIFF. PT'S LUNG SOUNDS WITH CRACKLES AND HAS REQUIRED PERIODIC BREATHING TREATMENTS. PT HAS BEEN VERY PLEASANT AND FEELS THAT HER BREATHING HAS GOTTNE BETTER. VSS. NO ACUTE CHANGES THIS SHIFT. CALL LIGHT WITHIN REACH. WILL CONTINUE TO MONITOR UNTIL SHIFT CHANGE.
--- NOTE | 2019-01-18 18:38 | NUR ---
SUMMARY- PT ALERT AND ORIENTED. LUNGS DIM IN BASES WITH COARSE LOWER HALF. RESP EVEN UNLABORED, O2 3L/NC. NEBS ROUTINE PER RT. PT ON BEDREST MOST OF THE DAY. JOSE DC'D 1030. GOT UP TO BSC, SBA AND VOIDED [employer]. TOLERATED ACTIVITY WELL WITH GOOD STRENGTH AND ONLY MIN SOB. AT BEDSIDE TO VISIT THIS JACKIE BREIFLY. SKIN FOLDS RED, NO OPEN AREAS, APPLIED PROTECTIVE BARRIER CREAM. BP ELEVATED THIS PM 1600. NOTIFIED DR BARRAZA, WROTE PRN AND INCREAED METOPROLOL. GIVEN HYDRALAZINE 10MG, WILL F/U WITH VS, AND REPORT TO BANKRUPTCY ASSISTANT.
--- NOTE | 2019-01-19 05:38 | NUR ---
END OF SHIFT SUMMARY NO ACUTE CHANGES THIS SHIFT. VSS, SOME HTN BUT MEDS GIVEN PER EMAR. SOME FORGETFULLNESS NOTED BUT OTHERWISE AXO. PT HAS HAD A SHOWER THIS SHIFT. ACCIDENTALLY PULLED IV. HAS PREDOMINANTLY REMAINED IN BED HOWEVER. 2-3LNC, NONLABORED BREATHING. PT HAS BEEN VERY PLEASANT AND COOPERATIVE. PT ALSO NOTED TO HAVE SLEPT FOR SOME OF THIS SHIFT. WILL CONTINUE TO MONITOR UNTIL SHIFT CHANGE.
[2019-01-19 05:42] LABS: Magnesium, Blood 2.1 mg/dL (1.6-2.4)
[2019-01-19 05:43] LABS: Anion Gap 7 mmol/L (6-16); Blood Urea Nitrogen 29 mg/dL (8-24); Bun/Creatinine Ratio 24.8 (12.0-20.0); CO2, Blood 28 mmol/L (21-32); Calcium, Blood 9.3 mg/dL (8.5-10.1); Chloride, Blood 106 mmol/L (98-108); Creatinine, Blood 1.17 mg/dL (0.40-1.00); Glomerular Filtration Rate 49 (60-); Glucose, Blood 193 mg/dL (70-99); Phosphorus, Blood 2.9 mg/dL (2.5-4.9); Potassium, Blood 3.6 mmol/L (3.5-5.5); Sodium, Blood 141 mmol/L (136-145)
[2019-01-19 05:45] LABS: Vancomycin, Trough 20.5 ug/mL (5.0-10.0)
--- NOTE | 2019-01-19 10:52 | NUR ---
PERMISSION FOR CARE PATIENT GAVE STUDENT PERMISSION TO PROVIDE CARE ON 01/19/2019.
--- NOTE | 2019-01-19 11:32 | NUR ---
PT STABLE FOR TRANSFER TO MEDICAL FLOOR. REPORT CALLED TO SHARAD BURDICK.
--- NOTE | 2019-01-19 11:54 | NUR ---
PT TRANSFERED VIA BED WITH BELONGINGS TO MEDICAL FLOOR.
--- NOTE | 2019-01-19 13:05 | NUR ---
PT ARRIVE TO UNIT VIA BED. PT ORIENTATED TO ROOM. PT REPORTS BLE AND BUE NUMBNESS AND TINGLING AT BASELINE. PTS LUNG SOUNDS ARE DIMINISHED WITH BLL WHEEZE. PT REPORTS NO OTHER NEEDS AT THIS TIME
--- NOTE | 2019-01-19 14:25 | NUR ---
PT REPORTS INTERMITENT PAIN IN HER CHEST. DISCUSSED WITH PHYSICIAN ABOUT HER DISCOMFORT, CARDIAC WORK UP HAS BEEN PREFORMED AND PT REPORTS THAT THIS IS THE SAME PAIN SHE HAS HAD. PHYSICIAN EXPLAINED THAT THE PNUMONIA CAN CAUSE THIS TYPE OF PAIN THAT SHE IS EXPERIENCING. MEDICATED PER MAY.
[2019-01-20 05:12] LABS: Bun/Creatinine Ratio 26.5 (12.0-20.0); Calcium, Blood 8.7 mg/dL (8.5-10.1); Creatinine, Blood 1.36 mg/dL (0.40-1.00); Magnesium, Blood 1.8 mg/dL (1.6-2.4); Phosphorus, Blood 3.2 mg/dL (2.5-4.9); Potassium, Blood 3.5 mmol/L (3.5-5.5)
--- NOTE | 2019-01-20 06:17 | NUR ---
SHIFT SUMMARY: PT A/O. COMMUNICATING NEEDS. HAS BEEN AWAKE MUCH OF THE NIGHT WATCHING TV. DENIES PAIN. 02 96% ON 2L VIA NC. MINIMAL COUGHING. SOB WITH EXERTION. BED LOW, CALL BUTTON IN REACH.
[2019-01-20] MEDS ORDERED: METO50 PO (12:46)
[2019-01-20] MEDS ORDERED: LEVO750 PO (12:49)
[2019-01-20] MEDS ORDERED: Pedi-Dri 100,0060 GM TOP (12:55)
[2019-01-20] MEDS ORDERED: POTA10T PO (12:57)
[2019-01-20] MEDS ORDERED: PRED20 PO (13:01)
[2019-01-20] MEDS ORDERED: FURO20 PO (13:03)
[2019-01-20] MEDS ORDERED: PANT20 PO (13:05)
--- NOTE | 2019-01-20 13:55 | NUR ---
PT. DISCHARGED HOME WITH SPOUSE. PT. GIVEN A LOT OF EDUCATION ON DIABETES/CHF/RESPIRATORY FAILURE.
== END 2019-01-20 13:55 | disposition home or self-care (01) | DRG 871 ==
LOC: ER 00:53 → ICUW 04:28 → PCU 01-17 16:10 → MEDS 01-19 12:15 → ENPENDDIS 01-20 11:07 → MEDS 01-20 13:55
PROVIDERS: Emergency Medicine; Internal Medicine; Internal Medicine Critical Care Medicine; Internal Medicine Pulmonary Disease; ADMIT Hospitalist
PROC: 5A09357 Assistance with Respiratory Ventilation, Less than 24 Consecutive Hours, Continuous Positive Airway Pressure (ICD-10-PCS; principal; 2019-01-15)
DX: A41.9 Sepsis, unspecified organism (principal); J96.21 Acute and chronic respiratory failure with hypoxia; J18.9 Pneumonia, unspecified organism; I21.4 Non-ST elevation (NSTEMI) myocardial infarction; G92 Toxic encephalopathy; I50.33 Acute on chronic diastolic (congestive) heart failure; E87.1 Hypo-osmolality and hyponatremia; Z79.82 Long term (current) use of aspirin; Z79.4 Long term (current) use of insulin; Z95.5 Presence of coronary angioplasty implant and graft; F17.210 Nicotine dependence, cigarettes, uncomplicated; K21.9 Gastro-esophageal reflux disease without esophagitis; N18.3 Chronic kidney disease, stage 3 (moderate); I25.10 Atherosclerotic heart disease of native coronary artery without angina pectoris; I12.9 Hypertensive chronic kidney disease with stage 1 through stage 4 chronic kidney disease, or unspecified chronic kidney disease; E11.22 Type 2 diabetes mellitus with diabetic chronic kidney disease; E66.01 Morbid (severe) obesity due to excess calories; E11.649 Type 2 diabetes mellitus with hypoglycemia without coma; Z68.33 Body mass index [BMI] 33.0-33.9, adult; T88.7XXA Unspecified adverse effect of drug or medicament, initial encounter; T42.4X5A Adverse effect of benzodiazepines, initial encounter; Y92.9 Unspecified place or not applicable
CPT/HCPCS: 36415; 36600; 51702; 71045; 71250; 74018; 80047; 80048; 80053; 80202; 81001; 82803; 82947; 83605; 83735; 83880; 84100; 84145; 84484; 85014; 85025; 85610; 85730; 87040; 87070; 87205; 87493; 93005; 93010; 93306; 94640; 94644; 94660; 94760; 94762; 96361-59; 96365-59; 96367-59; 96375-59; 96376-59; 99285-25; A9270-GY; J0360; J0713; J1644; J1940; J2060; J2543; J2920; J2930; J3010; J3370; J7030; J7050; J7512

== ENCOUNTER → 2019-03-09 | Outpatient (CLI) | payer OTHER ==
[~2019-03-09] MED LIST changes: +BASAGLAR K100 UNIT/1 SC; +COMBIVENT RESPIM4 GM INH; +LEVO750 PO; +METO50 PO; +POTA10T PO; +PRED20 PO; +Pedi-Dri 100,0060 GM TOP
[2019-03-12 14:07] LABS: M-SPIKE, % Not Observed % (Not Observed); PROTEIN,TOTAL,URINE 95.3 mg/dL (Not Estab.)
== END | disposition home or self-care (01) ==
LOC: OLS 09:30 → LAB SHORT 09:30
PROVIDERS: Internal Medicine
DX: Z00.01 Encounter for general adult medical examination with abnormal findings (principal)
CPT/HCPCS: 81050; 84156; 84166

== ENCOUNTER 2019-04-11 22:24 | Inpatient (IN) | payer OTHER ==
[~2019-04-11] VITALS: Ht 170.2 cm; Wt 98.7 kg
[2019-04-11 23:09] LABS: BASOPHILS PERCENT AUTO 1 % (0-2); EOSINOPHILS ABSOLUTE AUTO 0.33 K/mm3 (0.00-0.68); EOSINOPHILS PERCENT AUTO 3 % (0-6); Hematocrit 35.3 % (33.0-51.0); Hemoglobin 10.6 g/dL (11.5-16.0); IMMATURE GRAN ABSOLUTE AUTO 0.03 K/mm3 (0.00-0.10); IMMATURE GRAN PERCENT AUTO 0 % (0-1); LYMPHOCYTES ABSOLUTE AUTO 2.02 K/mm3 (0.84-5.20); LYMPHOCYTES PERCENT AUTO 19 % (21-46); MONOCYTES ABSOLUTE AUTO 0.93 K/mm3 (0.16-1.47); MONOCYTES PERCENT AUTO 9 % (4-13); Mean Corpuscular Volume 93 fL (80-100); Mean Platelet Volume 9.8 fL (9.1-12.4); NEUTROPHILS ABSOLUTE AUTO 7.04 K/mm3 (1.96-9.15); NEUTROPHILS PERCENT AUTO 67 % (41-73); Platelet Count 298 K/mm3 (150-400); RDW Coefficient Variation 14.4 % (11.7-14.2); RDW Standard Deviation 49.2 fL (35.1-46.3); Red Blood Cell Count 3.79 M/mm3 (3.80-5.20); White Blood Cell Count 10.45 K/mm3 (4.00-11.30)
[2019-04-11 23:29] LABS: Alanine Aminotransfer (ALT/SGP 19 U/L (12-78); Albumin/Globulin Ratio 0.7 (0.8-1.8); Alk Phos 103 U/L (50-136); Anion Gap 8 mmol/L (6-16); Aspartate Aminotrans (AST/SGOT 12 U/L (12-37); Bilirubin, Total 0.3 mg/dL (0.1-1.0); Blood Urea Nitrogen 25 mg/dL (8-24); Bun/Creatinine Ratio 16.4 (12.0-20.0); CO2, Blood 25 mmol/L (21-32); Chloride, Blood 107 mmol/L (98-108); Creatinine, Blood 1.52 mg/dL (0.40-1.00); Globulin, Blood 4.3 g/dL (2.2-4.0); Glomerular Filtration Rate 36 (60-); Glucose, Blood 153 mg/dL (70-99); Potassium, Blood 4.1 mmol/L (3.5-5.5); Sodium, Blood 140 mmol/L (136-145); Total Protein, Blood 7.3 g/dL (6.4-8.2); Troponin I <0.015 ng/mL (0.000-0.040)
[2019-04-12 00:01] LABS: International Normalized Ratio 0.93
--- NOTE | 2019-04-12 12:47 | NUR ---
0800 ASSESSMENT NOTE... PT IS A/O AND MAEW. PT IS ABLE TO GET UP TO BSC TO VIA WITH MINIMAL ASSIST. PT C/O BILATERL NECK AND UPPER SHOULDER PAIN. PT NOTES PAIN IN DIME SIZE FOCAL AREA OF R MID CHEST THAT HAS BEEN AT 5-7/10 RANGE LAST FEW HOURS. PT IS CURRENTLY ON NGT GTT AT 35 MCG, SEE TITRATION DOWN AND OFF PER FLOW SHEET. PT IS HAVING A 5/10 MANRIQUE THAT HAS BEEN BULIDING. PT DENIES OTHER PAIN OR DISTRESS. IS ON RA WITH NOTED SATS.
--- NOTE | 2019-04-12 12:54 | NUR ---
1030 NTG IS BEING TITRATED DOWN AND OFF AT THIS TIME PT IS GOING TO ACUTE CARE REGISTERED NURSE. HEPARIN GTT IS ASLO SL. IV SITES PER RA. PT TRANSFERED PER BED.
--- NOTE | 2019-04-12 12:56 | NUR ---
1130 PT RETURNED FROM DR[facility] AND DR HERRERA IS PLANNING TO TRANSFER PT TO [facility] FOR BIPASS SURG. PT IS SOMEWHAT TEARFUL AND UNCERTAIN OF WHAT THIS WILL MEAN. PT EDUCATED TO THE PROCESS AND RECOVERY AN ATTEMPT TO ASSIST IN PT UNDERSTANDING. IVF HAVE BEEN STOPPED AND PT TAKING PO. IS VOIDING PER BEDPAN W/O DIFFICULTY. R GROIN SITE IS STABLE WITH DISTAL PULSES PRESENT. PT IS SOMEWHAT ANXIOUS RESTLESS AND HAS SPOKEN WITH PT VIA PHONE. VS NOTED. WILL AWAIT FURTHER TRANSFER INFORMATION.
--- NOTE | 2019-04-12 13:02 | NUR ---
PT CBG NOTED AT 68 AND WILL RESUME CARDICA/ADA DIET. ORDER PLACED AND WILL AWAIT TRAY. GROIN SITE REMAINS STABLE. PT P IS SL ELEVATED NOTED HOWEVER PT HAS NO CHEST PAIN AT THIS TIME AND PT ONLY C/O MANRIQUE THAT IS MARKEDLY IMPROVED.
--- NOTE | 2019-04-12 13:48 | NUR ---
0489 REPORT CALLED TO BRENDON RN AND PT WILL BE TRANSPORTED VIA AMBULANCE BILL. REPORT TO PARAMETICS FOLLOWED CALL TO RN. VS STABLE AND R GROIN SITE REMAINS STABLE W/O BLEEDING, HEMATOMA, OR SITE OOZING,
== END 2019-04-12 13:50 | disposition short-term general hospital (02) | DRG 282 ==
LOC: ER 22:24 → ICUW 04-12 00:39
PROVIDERS: Emergency Medicine; ADMIT Internal Medicine
PROC: 4A023N7 Measurement of Cardiac Sampling and Pressure, Left Heart, Percutaneous Approach (ICD-10-PCS; principal; 2019-04-12)
PROC: B2111ZZ Fluoroscopy of Multiple Coronary Arteries using Low Osmolar Contrast (ICD-10-PCS; 2019-04-12)
DX: I21.4 Non-ST elevation (NSTEMI) myocardial infarction (principal); I12.9 Hypertensive chronic kidney disease with stage 1 through stage 4 chronic kidney disease, or unspecified chronic kidney disease; E11.22 Type 2 diabetes mellitus with diabetic chronic kidney disease; I25.110 Atherosclerotic heart disease of native coronary artery with unstable angina pectoris; E78.5 Hyperlipidemia, unspecified; K21.9 Gastro-esophageal reflux disease without esophagitis; J44.9 Chronic obstructive pulmonary disease, unspecified; N18.3 Chronic kidney disease, stage 3 (moderate); I48.91 Unspecified atrial fibrillation; M54.9 Dorsalgia, unspecified; Z85.43 Personal history of malignant neoplasm of ovary; I25.2 Old myocardial infarction; Z87.891 Personal history of nicotine dependence; Z95.5 Presence of coronary angioplasty implant and graft
CPT/HCPCS: 36415; 71045; 80053; 82947; 83880; 84484; 85025; 85610; 85730; 93005; 93010; 93454; 94640; 96365; 96375; 96376; 99152; 99285-25; A9270-GY; C1760; C1769; J1644; J2250; J2270; J2405; J3010; J7030; Q9967

== ENCOUNTER 2019-04-30 12:31 | Emergency (ER) | payer OTHER ==
[~2019-04-30] VITALS: Ht 167.6 cm; Wt 100.2 kg
[2019-04-30 13:17] LABS: BASOPHILS ABSOLUTE AUTO 0.07 K/mm3 (0.00-0.23); BASOPHILS PERCENT AUTO 1 % (0-2); EOSINOPHILS ABSOLUTE AUTO 0.52 K/mm3 (0.00-0.68); EOSINOPHILS PERCENT AUTO 4 % (0-6); Hematocrit 30.5 % (33.0-51.0); Hemoglobin 9.1 g/dL (11.5-16.0); IMMATURE GRAN ABSOLUTE AUTO 0.07 K/mm3 (0.00-0.10); IMMATURE GRAN PERCENT AUTO 1 % (0-1); LYMPHOCYTES ABSOLUTE AUTO 1.44 K/mm3 (0.84-5.20); LYMPHOCYTES PERCENT AUTO 10 % (21-46); MONOCYTES ABSOLUTE AUTO 0.67 K/mm3 (0.16-1.47); MONOCYTES PERCENT AUTO 5 % (4-13); Mean Corpuscular HGB 27.4 pg (26.0-34.0); Mean Corpuscular HGB Conc 29.8 g/dL (31.5-36.5); Mean Corpuscular Volume 92 fL (80-100); NEUTROPHILS ABSOLUTE AUTO 12.11 K/mm3 (1.96-9.15); NEUTROPHILS PERCENT AUTO 81 % (41-73); Platelet Count 620 K/mm3 (150-400); RDW Coefficient Variation 16.8 % (11.7-14.2); RDW Standard Deviation 56.8 fL (35.1-46.3); Red Blood Cell Count 3.32 M/mm3 (3.80-5.20); White Blood Cell Count 14.88 K/mm3 (4.00-11.30)
[2019-04-30 13:39] LABS: Albumin, Blood 2.7 g/dL (3.4-5.0); Calcium, Blood 8.9 mg/dL (8.5-10.1); Potassium, Blood 4.7 mmol/L (3.5-5.5)
[2019-04-30 13:46] LABS: Albumin/Globulin Ratio 0.6 (0.8-1.8); Bilirubin, Total 0.3 mg/dL (0.1-1.0); Bun/Creatinine Ratio 14.5 (12.0-20.0); Creatinine, Blood 1.31 mg/dL (0.40-1.00); Globulin, Blood 4.7 g/dL (2.2-4.0); Total Protein, Blood 7.4 g/dL (6.4-8.2); Troponin I 0.31 ng/mL (0.000-0.040)
[2019-04-30] MEDS ORDERED: Amiodarone HCl200 MG PO (14:21)
[2019-04-30] MEDS ORDERED: ASPI325 PO (14:21)
[2019-04-30] MEDS ORDERED: DILT60 PO (14:22)
[2019-04-30] MEDS ORDERED: METO25 PO (14:23)
[2019-04-30] MEDS ORDERED: Duoneb 2.5-0.5 M3 ML INH (14:26)
[2019-04-30] MEDS ORDERED: Nitrostat0.3 MG SL (14:27)
[2019-04-30] MEDS ORDERED: OMEP20ER PO (14:28)
[2019-04-30] MEDS ORDERED: VITAMIN D325 MCG PO (14:29)
[2019-04-30] MEDS ORDERED: TIOT18 INH (14:29)
== END 2019-04-30 15:25 | disposition home or self-care (01) ==
LOC: ER 12:31
PROVIDERS: Physician Assistant
DX: T82.898A Other specified complication of vascular prosthetic devices, implants and grafts, initial encounter (principal); R53.1 Weakness; R06.2 Wheezing; M79.89 Other specified soft tissue disorders; E11.22 Type 2 diabetes mellitus with diabetic chronic kidney disease; I12.9 Hypertensive chronic kidney disease with stage 1 through stage 4 chronic kidney disease, or unspecified chronic kidney disease; N18.3 Chronic kidney disease, stage 3 (moderate); E78.5 Hyperlipidemia, unspecified; Z79.899 Other long term (current) drug therapy
CPT/HCPCS: 36415; 71046; 80053; 84484; 85025; 93005; 93010; 93971; 99284-25

== ENCOUNTER 2019-08-24 21:58 | Emergency (ER) | payer OTHER ==
[~2019-08-24] VITALS: Ht 170.2 cm; Wt 95.2 kg
[~2019-08-24 21:58] MED LIST changes: +Amiodarone HCl200 MG PO; +DILT60 PO; +Duoneb 2.5-0.5 M3 ML INH; +METO25 PO; +TIOT18 INH; +VITAMIN D325 MCG PO
== END 2019-08-25 00:53 | disposition home or self-care (01) ==
LOC: ER 21:58
DX: M25.552 Pain in left hip (principal); M25.562 Pain in left knee; M79.672 Pain in left foot; Z88.1 Allergy status to other antibiotic agents; Z79.82 Long term (current) use of aspirin; Z79.899 Other long term (current) drug therapy; Z79.4 Long term (current) use of insulin; I25.810 Atherosclerosis of coronary artery bypass graft(s) without angina pectoris; E11.22 Type 2 diabetes mellitus with diabetic chronic kidney disease; I12.9 Hypertensive chronic kidney disease with stage 1 through stage 4 chronic kidney disease, or unspecified chronic kidney disease; N18.3 Chronic kidney disease, stage 3 (moderate); J44.9 Chronic obstructive pulmonary disease, unspecified; E78.5 Hyperlipidemia, unspecified; I48.91 Unspecified atrial fibrillation; Z87.891 Personal history of nicotine dependence; W18.30XA Fall on same level, unspecified, initial encounter
CPT/HCPCS: 73502; 73562-LT; 73610; 99284-25